=== PATIENT | male | born 1960 | race Caucasian/White ===

== ENCOUNTER 2016-09-26 09:38 | Emergency (ER) | payer MEDICAID ==
[2016-09-26 09:44] VITALS: BP 138/88; PULSE 71; RESP 17; TEMP 97.9; O2SAT 94
--- NOTE | 2016-09-26 10:47 | EDPHY ---
H & P Time Seen by Provider: 09/26/16 09:45 HPI/ROS: CHIEF COMPLAINT: Right knee injury HISTORY OF PRESENT ILLNESS: 56-year-old male presents to the emergency department with injury to his right knee. The patient states few days ago he stepped down from a ladder and felt his knee buckle and then he fell to the ground. He complains of isolated pain to the right knee. He did not hit his head or lose consciousness. He has pain especially when she tries to bear weight and with certain movements including full extension. ROS: Denies numbness or tingling in his toes, pain in the right ankle or foot. Past Medical/Surgical History: Prostate cancer with metastasis to bone Social History: Single Smoking Status: Current every day smoker Physical Exam: On examination there is no obvious effusion noted to the right knee. He has limited flexion and limited full extension secondary to pain. He has diffuse pain with palpation especially to the medial aspect of the right knee. No palpable crepitus or other bony abnormality. No obvious ligament injury noted. His gait is limited by pain. His calf is nontender. Right ankle is nontender. Right hip has full mobility. Constitutional: Initial Vital Signs Temperature (C) 36.6 C 09/26/16 09:41 Heart Rate 71 09/26/16 09:41 Respiratory Rate 17 09/26/16 09:41 Blood Pressure 138/88 H 09/26/16 09:41 O2 Sat (%) 94 09/26/16 09:41 O2 Delivery Mode Room Air Allergies/Adverse Reactions: No Known Allergies Allergy (Verified 09/26/16 09:39) Home Medications: Medication Instructions Recorded NK [No Known Home Meds] 09/26/16 MDM/Departure - MDM Diagnostics: X-rays of the right knee reveal no fractures. This is reviewed by myself the PAC system. Radiology interpretation to follow. Procedures: Patient was placed in straight leg knee immobilizer and examined post application in good placement with normal [employer]. ED Course/Re-evaluation: 56-year-old male presents to the emergency department with right knee injury. X- rays reveal no fractures. He was placed in a straight leg knee immobilizer and given orthopedic referral. - Depart Disposition: Home, Routine, Self-Care Clinical Impression: Right knee sprain Qualifiers: Encounter type: initial encounter Involved ligament of knee: unspecified ligament Qualified Code(s): S83.91XA - Sprain of unspecified site of right knee , initial encounter Condition: Good Instructions: Knee Sprain (ED) Additional Instructions: Knee immobilizer for comfort and support. Ibuprofen 600 mg every 8 hours as needed for pain. Weight bear as tolerated. Follow up with orthopedic surgeon this week to recheck. Referrals: Chi Bartholomew MD [Primary Care Provider] - As per Instructions Aydin Kenny MD [Medical Doctor] - 5-7 days, call for appt. (Orthopedic surgeon on-call)
== END 2016-09-26 11:10 | disposition home or self-care (01) ==
DX: S83.91XA Sprain of unspecified site of right knee, initial encounter (principal); F17.200 Nicotine dependence, unspecified, uncomplicated; Z85.46 Personal history of malignant neoplasm of prostate; W11.XXXA Fall on and from ladder, initial encounter; Y93.89 Activity, other specified
CPT/HCPCS: L1830

== ENCOUNTER → 2017-01-04 | Outpatient (CLI) | payer MEDICAID | LOC: FIMAGING 13:47 | PROVIDERS: ATTEND Internal Medicine Hematology & Oncology | DX: R79.89 Other specified abnormal findings of blood chemistry (principal); C61 Malignant neoplasm of prostate ==